=== PATIENT | female | born 1945 | race Caucasian/White ===

== ENCOUNTER 2018-01-19 15:44 | Observation (INO) ==
[2018-01-19] MEDS ORDERED: Bisacodyl 10 MG Supp RECTAL PRN (18:51)
[2018-01-19] MEDS ORDERED: Acetaminophen 325 MG Tablet PO PRN (18:51)
[2018-01-19] MEDS ORDERED: Sod Chloride 0.9% Inj 1,000 ML IV.CONT SCH (19:00)
--- NOTE | 2018-01-19 22:27 | P.HPIM ---
History of Present Illness Service: [facility] Primary Care Physician: UNKNOWN Chief Complaint: Abdominal pain, diarrhea, nausea, and vomiting History of Present Illness: Ms. Lynn is a 72-year-old female with a history of cervical cancer treated with radioactive cervical implants, hypertension, anxiety, depression, and fibromyalgia who presented to the emergency room in [place] on 01/19/2018 complaining of abdominal pain with nausea, vomiting and diarrhea for about 3 days duration. She had an abdomen/pelvis CT with IV contrast performed that showed abnormal dilation of the proximal duodenum before the duodenum crosses between SMA and aorta with concern for SMA syndrome. There was also a possible large duodenal diverticulum versus twist and proximal duodenum and a nonspecific fluid-filled structure deep in the pelvis on the right side measuring 3.8 x 5.2 cm which could possibly be a dilated bowel loop. The patient was transferred to [facility] for further evaluation. The patient is seen in her hospital room on 5 N. She reports having nausea for 3-5 days accompanied with one episode of vomiting per day and multiple episodes of diarrhea of the consistency of soft serve ice cream. She also reports severe right-sided back pain along with diffuse mid-abdominal pain. She reports having episodes of severe abdominal pain and nausea and vomiting over the past 30+ years since receiving radiation implants for treatment of cervical cancer. She states that the symptoms last for a few days and then resolved but are severe. She denies any recent fever, chills, chest pain, or shortness of breath. Sharp abdominal pain was relieved by [place] given at [place] ED. . Inpatient Certification: I certify that the inpatient services were ordered in accordance with Medicare regulations governing the order. This includes certification that hospital inpatient services are reasonable and necessary and in the case of services not specified as inpatient-only under 42 CFR 419.22(n), that they are appropriately provided as inpatient services in accordance to with the 2-midnight benchmark under 43 CFR 412.3(e) Review of Systems All other systems reviewed negative except as stated in HPI PMFSH - History History Provided By: Patient - Medical History Medical History: Medical History (Last Updated 01/19/18 @ 22:26 by BRIEN Rajan) Anxiety Depression Fibromyalgia Herniated disc, cervical Hx of cervical cancer Onset Date: ~1984 Hypertension - Surgical History Surgical History: Surgical History (Last Updated 01/19/18 @ 19:29 by BRIEN Rajan) History of back surgery History of tonsillectomy and adenoidectomy Hx of hysterectomy Hx of knee surgery - Family History Family History: Family History (Last Updated 01/19/18 @ 22:27 by BRIEN Rajan) Mother Family history of [place] (myocardial infarction) Father Cirrhosis of liver not due to alcohol - Social History I have reviewed the patient's Social History: Yes - Tobacco History Second Hand Smoke Exposure: Yes Smoking Status: Current every day smoker Tobacco Type: Cigarettes - Alcohol History How Often Do You Have a Drink Containing Alcohol: Monthly or less - Substance Use History Substance History: Active Abuse - Substance Use Type Marijuana Status: Active Route Used: Inhalation Frequency: Every other day Reason for Use: Calm Down, Sleep Comment: Get rid of stress Medications and Allergies Active Medications: Active Medications Acetaminophen (Tylenol) 650 mg PO Q4H PRN PRN Reason: Temp > 100.4 Al Hydroxide/Mg Hydroxide (Milk Of Magnesia Liq) 30 ml PO Q12H PRN PRN Reason: Mild Constipation Bisacodyl (Dulcolax Supp) 10 mg RECTAL DAILY PRN PRN Reason: SEVERE CONSITIPATION Enalaprilat (Vasotec Inj) 2.5 mg IV.PUSH Q6H PRN PRN Reason: sbp> 160 or dbp > 100 Dextrose/Sodium Chloride (D5w/1/2 Ns Inj) 1,000 mls @ 100 mls/hr IV.CONT .Q10H [facility]ECTOR Lactulose (Lactulose Liq) 30 ml PO DAILY PRN PRN Reason: SEVERE CONSITIPATION Morphine Sulfate (Morphine Inj) 2 mg IV.PUSH Q3H PRN PRN Reason: pain > 3 Ondansetron HCl (Zofran Inj) 4 mg IV.PUSH Q6H PRN PRN Reason: NAUSEA OR VOMITING Sennosides (Senokot) 17.2 mg PO Q12H PRN PRN Reason: Moderate Constipation Sodium Chloride (Ns Flush) 2 ml IV.FLUSH BID HECTOR Sodium Chloride (Ns Flush) 2 ml IV.FLUSH PRN PRN PRN Reason: FLUSH AFTER USING IV ACCESS Allergies Allergy/AdvReac Type Severity Reaction Status Date / Time metoclopramide Allergy Severe can't Verified 01/19/18 16:28 breathe Home Medications Medication Instructions Recorded Confirmed Type duloxetine [Cymbalta] 60 mg PO DAILY 01/19/18 01/19/18 History gabapentin 300 mg PO DAILY 01/19/18 01/19/18 History olmesartan [Benicar] 20 mg PO DAILY 01/19/18 01/19/18 History Exam Vital signs: Vital Signs 01/19/18 20:00 Temperature 97.6 F Pulse Rate 74 Respiratory Rate 18 Blood Pressure 157/74 H Pulse Oximetry 96 Narrative: GENERAL: This is a well-nourished, well-developed patient, in no apparent distress. SKIN: No rashes, ecchymoses or lesions. Cool and dry. HEAD: Atraumatic. Normocephalic. EYES: No scleral icterus. No injection or drainage. ENT: Nose without bleeding, purulent drainage. NECK: Trachea midline. No JVD or lymphadenopathy. CARDIOVASCULAR: Regular rate and rhythm without murmurs, gallops, or rubs. RESPIRATORY: Clear to auscultation. Breath sounds equal bilaterally. No wheezes , rales, or rhonchi. GASTROINTESTINAL: Bowel sounds soft and hypoactive but present. Abdomen soft, nondistended. No guarding. Upper abdominal pain with palpation. No rebound. MUSCULOSKELETAL: Extremities without clubbing, cyanosis, or edema. No calf tenderness. NEUROLOGICAL: Awake and alert. Motor and sensory grossly within normal limits. Normal speech. . Caprini VTE Risk Assessment Caprini VTE Risk Assessment: Moderate/High Risk (score >= 2) Caprini Risk Assessment Model: Point Value = 1 Point Value = 2 Point Value = 3 Point Value = 5 Age 41-60 Minor surgery BMI > 25 kg/m2 Swollen legs Varicose veins or History of unexplained or recurrent spontaneous Oral contraceptives or hormone replacement Sepsis (< 1 month) Serious lung disease, including pneumonia (< 1 month) Abnormal pulmonary function Acute myocardial infarction Congestive heart failure (< 1 month) History of inflammatory bowel disease Medical patient at bed rest Age 61-74 Arthroscopic surgery Major open surgery (> 45 min) Laparoscopic surgery (> 45 min) Malignancy Confined to bed (> 72 hours) Immobilizing plaster cast Central venous access Age >= 75 History of VTE Family history of VTE Factor V Leiden Prothrombin [id number] Lupus anticoagulant Anticardiolipin antibodies Elevated serum homocysteine Heparin-induced thrombocytopenia Other congenital or acquired thrombophilia Stroke (< 1 month) Elective arthroplasty Hip, pelvis, or leg fracture Acute spinal cord injury (< 1 month) Prophylaxis Regimen: Total Risk Factor Score Risk Level Prophylaxis Regimen 0-1 Low Early ambulation 2 Moderate Order ONE of the following: *Sequential Compression Device (SCD) *Heparin 5000 units SQ BID 3-4 Higher Order ONE of the following medications: *Heparin 5000 units SQ TID *Enoxaparin/Lovenox 40 mg SQ daily (WT < 150 kg, CrCl > 30 mL/min) *Enoxaparin/Lovenox 30 mg SQ daily (WT < 150 kg, CrCl > 10-29 mL/min) *Enoxaparin/Lovenox 30 mg SQ BID (WT < 150 kg, CrCl > 30 mL/min) AND/OR *Sequential Compression Device (SCD) 5 or more Highest Order ONE of the following medications: *Heparin 5000 units SQ TID (Preferred with Epidurals) *Enoxaparin/Lovenox 40 mg SQ daily (WT < 150 kg, CrCl > 30 mL/min) *Enoxaparin/Lovenox 30 mg SQ daily (WT < 150 kg, CrCl > 10-29 mL/min) *Enoxaparin/Lovenox 30 mg SQ BID (WT < 150 kg, CrCl > 30 mL/min) AND *Sequential Compression Device (SCD) Assessment and Plan - Plan Ms. Lynn is a 72-year-old female with a history of cervical cancer treated with radioactive cervical implants, hypertension, anxiety, depression, and fibromyalgia who presented to the emergency room in [place] on 01/19/2018 complaining of abdominal pain with nausea, vomiting and diarrhea for about 3 days duration. She had an abdomen/pelvis CT with IV contrast performed that showed abnormal dilation of the proximal duodenum before the duodenum crosses between SMA and aorta with concern for SMA syndrome. There was also a possible large duodenal diverticulum versus twist and proximal duodenum and a nonspecific fluid-filled structure deep in the pelvis on the right side measuring 3.8 x 5.2 cm which could possibly be a dilated bowel loop. The patient was transferred to [facility] for further evaluation. Abdominal pain with nausea, vomiting, and diarrhea; concern for SMA syndrome and pelvic mass due to imaging -Abdomen/pelvis CT with IV contrast performed that showed abnormal dilation of the proximal duodenum before the duodenum crosses between SMA and aorta with concern for SMA syndrome. There was also a possible large duodenal diverticulum versus twist and proximal duodenum and a nonspecific fluid-filled structure deep in the pelvis on the right side measuring 3.8 x 5.2 cm which could possibly be a dilated bowel loop. -Obtain upper GI with small bowel series to further evaluate for obstruction -Obtain abdomen/pelvis CT with oral contrast to further evaluate mass and pelvic and pelvis -N.p.o. -D5 half-normal saline at 100 cc/h -Morphine 2 mg IV push every 3 hours as needed for pain -Consult to gastroenterology -initiate assistance -Check for C. difficile, stool for electrolytes and osmolality, eosinophils, WBC smear -Monitor vital signs and white blood count -Chest x-ray personally reviewed and is negative for acute cardiopulmonary process -UA is within normal parameters Hypertension -As needed Vasotec per parameters -Holding p.o. meds for now -will resume Benicar when tolerating p.o. -monitor bp trends and adjust treatment as needed Depression/anxiety -Cymbalta will be resumed when tolerating p.o. -Consult special services supervisor services per patient request Peripheral neuropathy -Gabapentin will be resumed when tolerating p.o. Tobacco abuse -Advised cessation DVT prophylaxis -SCDs -holding chemoprophylaxis pending GI evaluation Discussed Condition With: Patient, Dr. George, and RN
[2018-01-19] MEDS: Morphine Sulfate Inj 2 MG/ML Vial IV.PUSH PRN (23:20)
[2018-01-19] MEDS: Dextrose 5%/NaCl 0.45% Inj 1,000 ML IV.CONT SCH (23:21)
[2018-01-20] MEDS: Dextrose 5%/NaCl 0.45% Inj 1,000 ML IV.CONT SCH ×2 (09:46→22:23)
[2018-01-20] MEDS: Morphine Sulfate Inj 2 MG/ML Vial IV.PUSH PRN (10:34)
[2018-01-20 10:45] LABS: Baso % (Auto) 0.5 % (0.0-2.0); Eos # (Auto) 0.1 th/mm3 (0.0-0.4); Eos % (Auto) 2.5 % (0.0-4.0); Hematocrit 35.9 % (35.0-46.0); Hemoglobin 12.2 gm/dL (11.6-15.3); Lymph # (Auto) 1.8 th/mm3 (1.0-4.8); Mean Corpuscular HGB Conc 33.9 % (32.0-36.0); Mean Corpuscular Volume 94.4 fL (80.0-100.0); Mean Platelet Volume 7.1 fL (7.0-11.0); Mono # (Auto) 0.4 th/mm3 (0.0-0.9); Mono % (Auto) 9.4 % (0.0-8.0); Neut # (Auto) 2.3 th/mm3 (1.8-7.7); Neut % (Auto) 49.6 % (16.0-70.0); Platelet Count 269 th/mm3 (150-450); Red Blood Count 3.81 mil/mm3 (4.00-5.30); Red Cell Distribution Width 13.8 % (11.6-17.2); White Blood Count 4.7 th/mm3 (4.0-11.0)
[2018-01-20 11:08] LABS: Anion Gap 2 meq/L (5-15); Blood Urea Nitrogen 8 mg/dL (7-18); Calcium 7.7 mg/dL (8.5-10.1); Carbon Dioxide 30.3 meq/L (21.0-32.0); Chloride 110 meq/L (98-107); Glomerular Filtration Rate Greater Than 89 mL/min (>89); Glucose,Random 99 mg/dL (74-106); Sodium 142 meq/L (136-145)
[2018-01-20] MEDS ORDERED: Diatrizoate Meglum/Diatrizoate Sod Liq 9 ML UDC PO ONE (12:45)
--- NOTE | 2018-01-20 12:51 | P.PNIM ---
Subjective Interval history: Follow-up for abdominal pain with nausea vomiting and diarrhea. Patient is currently doing well. With pain medications, her abdominal pain is better controlled. No fever or chills. Physical Exam Vital signs: Last Vital Signs Temp 97.4 F L 01/20/18 11:50 Pulse 75 01/20/18 11:50 Resp 18 01/20/18 11:50 BP 131/68 01/20/18 11:50 Pulse Ox 96 01/20/18 11:50 Intake & Output 01/18/18 01/19/18 01/20/18 01/21/18 06:59 06:59 06:59 06:59 Intake Total 1000 / 1000 Balance 1000 / 1000 Weight 69.9 kg Narrative: GENERAL: Alert, NAD. SKIN: Warm and dry. HEAD: Normocephalic. EYES: No scleral icterus. No injection or drainage. NECK: Supple, trachea midline. No JVD or lymphadenopathy. CARDIOVASCULAR: Regular rate and rhythm without murmurs, gallops, or rubs. RESPIRATORY: Breath sounds equal bilaterally. No accessory muscle use. GASTROINTESTINAL: Abdomen soft, non-tender except some tenderness in the LLQ, nondistended. MUSCULOSKELETAL: No cyanosis, or edema. BACK: Nontender without obvious deformity. No CVA tenderness. Results Labs CBC & Chem 7: 01/20/18 10:00 01/20/18 10:00 Assessment and Plan Plan Ms. Lynn is a 72-year-old female with a history of cervical cancer treated with radioactive cervical implants, hypertension, anxiety, depression, and fibromyalgia who presented to the emergency room in [place] on 01/19/2018 complaining of abdominal pain with nausea, vomiting and diarrhea for about 3 days duration. She had an abdomen/pelvis CT with IV contrast performed that showed abnormal dilation of the proximal duodenum before the duodenum crosses between SMA and aorta with concern for SMA syndrome. There was also a possible large duodenal diverticulum versus twist and proximal duodenum and a nonspecific fluid-filled structure deep in the pelvis on the right side measuring 3.8 x 5.2 cm which could possibly be a dilated bowel loop. The patient was transferred to [facility] for further evaluation. Abdominal pain with nausea, vomiting, and diarrhea -concern for SMA syndrome -Abdomen/pelvis CT with IV contrast performed that showed abnormal dilation of the proximal duodenum - -Obtain upper GI with small bowel series to further evaluate for obstruction -Obtain abdomen/pelvis CT with oral contrast to further evaluate mass and pelvic and pelvis -D5 half-normal saline at 100 cc/h -Morphine 2 mg IV push every 3 hours as needed for pain -Gastroenterology consult pending. Hypertension -As needed Vasotec per parameters -Currently normotensive. Depression/anxiety -Cymbalta will be resumed when tolerating p.o. -Consult police inspector services per patient request Peripheral neuropathy -Gabapentin will be resumed when tolerating p.o. Tobacco abuse -Advised cessation Full code. SCDs. Progress Note: Quality VTE Deep Vein Thrombosis/Pulmonary Embolism Present on Admission: No
--- NOTE | 2018-01-20 15:41 | CT ---
EXAM DATE: 01/20/2018 3:15 PM EST AGE/SEX: 72 years / Female INDICATIONS: Evaluation for SMA syndrome. Abdominal pain. CLINICAL DATA: This is the patient's initial encounter. Patient reports that signs and symptoms have been present for 2 days and indicates a pain score of 8/10. MEDICAL/SURGICAL HISTORY: Carcinoma, cervical. Hysterectomy. Tonsillectomy. RADIATION DOSE: 6.88 CTDI (mGy) COMPARISON: [facility], CT ABDOMEN & PELVIS W CONTRAST, 01/19/2018. . TECHNIQUE: Multiple contiguous axial images were obtained through the abdomen. Images were obtained using multiple row detector helical technique. Using automated exposure control and adjustment of the mA and/or kV according to patient size, radiation dose was kept as low as reasonably achievable to o btain optimal diagnostic quality images. DICOM format image data is available electronically for rev iew and comparison. FINDINGS: Today's study shows no evidence for significant SMA occlusion of the duodenum. Extensive assess chron ic vascular disease is present in the aorta. I can't discretely contrast is present in the gallbladde r. Liver, spleen, pancreas, adrenals and kidneys are unremarkable In the pelvis appears described fluid-filled structure in the cul-de-sac is only a cecum, now well fi lled with oral contrast. There is no free air. There are no inflammatory changes. CONCLUSION: 1. No evidence for SMA syndrome 2. No pelvic mass. Electronically signed by: Nathaniel Skinner MD Board Certified Radiologist 01/20/2018 3:40 PM EST
--- NOTE | 2018-01-20 15:50 | FL ---
EXAM DATE: 01/20/2018 3:46 PM EST AGE/SEX: 72 years / Female INDICATIONS: Obstruction. Evaluate for SMA syndrome. CLINICAL DATA: This is the patient's initial encounter. Patient reports that signs and symptoms have been present for 2 days and indicates a pain score of 8/10. MEDICAL/SURGICAL HISTORY: . Carcinoma, cervical. Hysterectomy. Tonsillectomy. COMPARISON: No prior exams available for comparison. FLUORO TIME: 1.6 minutes. 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 Ther e are several loops of nondilated air-containing small bowel with multiple small air-fluid levels. The upper GI series demonstrates the deglutition is grossly normal resulting in an unobstructed passa ge of barium into the proximal esophagus. There is normal esophageal mucosa and motility. There is a small reducible hiatal hernia with small amount of spontaneous gastroesophageal reflux. The gastric m ucosa and motility are within normal limits. Duodenal bulb and C-sweep are unremarkable in appearance . There is prompt passage of contrast through the duodenum and into the jejunum with no evidence of o bstruction. CONCLUSION; 1. Prompt passage of barium through the duodenum into the jejunum with no evidence of obstruction. T here is no evidence to suggest SMA syndrome. 2. Small reducible hiatal hernia with small amount of spontaneous gastroesophageal reflux. Electronically signed by: Don Spencer MD Board Certified Radiologist 01/20/2018 3:49 PM EST
[2018-01-20] MEDS ORDERED: Gadobutrol PF 7.5 MMOL/7.5 ML Vial (for RAD) IV.SIG ONE (18:12)
--- NOTE | 2018-01-20 19:13 | P.CONGI ---
History of Present Illness Consult date: 01/20/18 Consult reason: Possible superior mesenteric artery syndrome Chief complaint: Dehydration, Diarrhea History of Present Illness: This patient is a 72-year-old female with past medical history significant for anxiety, depression, fibromyalgia, herniated disc, cervical cancer and hypertension. Patient surgical history is coming significant for back surgery, tonsillectomy, hysterectomy and knee surgery. Patient presented to [facility] complaining of abdominal pain with nausea vomiting and diarrhea for 3-5 days. Patient reports lower abdominal pain and cramping that she states is intermittent. Patient reports accompanied loose stools with no noted bleeding. Patient states abdominal pain radiates across her mid abdomen. Patient denies any fever or chills, chest pain or shortness of breath. Patient denies ever having had a EGD or colonoscopy in the past. Our service has been consulted to evaluate patient for possible superior mesenteric artery syndrome. Review of Systems All other systems reviewed negative except as stated in HPI PMFSH - History History Provided By: Patient - Medical History Medical History: Medical History (Last Updated 01/19/18 @ 22:26 by BRIEN Rajan) Anxiety Depression Fibromyalgia Herniated disc, cervical Hx of cervical cancer Onset Date: ~1984 Hypertension - Surgical History Surgical History: Surgical History (Last Updated 01/19/18 @ 19:29 by BRIEN Rajan) History of back surgery History of tonsillectomy and adenoidectomy Hx of hysterectomy Hx of knee surgery - Family History Family History: Family History (Last Updated 01/19/18 @ 22:27 by BRIEN Rajan) Mother Family history of [place] (myocardial infarction) Father Cirrhosis of liver not due to alcohol - Tobacco History Second Hand Smoke Exposure: Yes Tobacco Use In Past 30 Days: Yes Smoking Status: Current every day smoker Tobacco Type: Cigarettes - Alcohol History How Often Do You Have a Drink Containing Alcohol: Monthly or less - Substance Use History Substance History: Active Abuse - Substance Use Type Marijuana Status: Active Route Used: Inhalation Frequency: Every other day Reason for Use: Calm Down, Sleep Comment: Get rid of stress - Immunization History Tetanus Immunization: >5 Years Hx Influenza Vaccine This Season: Yes Medications and Allergies Active Medications: Active Medications Acetaminophen (Tylenol) 650 mg PO Q4H PRN PRN Reason: Temp > 100.4 Al Hydroxide/Mg Hydroxide (Milk Of Magnesia Liq) 30 ml PO Q12H PRN PRN Reason: Mild Constipation Bisacodyl (Dulcolax Supp) 10 mg RECTAL DAILY PRN PRN Reason: SEVERE CONSITIPATION Enalaprilat (Vasotec Inj) 2.5 mg IV.PUSH Q6H PRN PRN Reason: sbp> 160 or dbp > 100 Dextrose/Sodium Chloride (D5w/1/2 Ns Inj) 1,000 mls @ 100 mls/hr IV.CONT .Q10H [facility] Last Admin: 01/20/18 09:46 Dose: 100 mls/hr Lactulose (Lactulose Liq) 30 ml PO DAILY PRN PRN Reason: SEVERE CONSITIPATION Morphine Sulfate (Morphine Inj) 2 mg IV.PUSH Q3H PRN PRN Reason: pain > 3 Last Admin: 01/20/18 10:34 Dose: 2 mg Ondansetron HCl (Zofran Inj) 4 mg IV.PUSH Q6H PRN PRN Reason: NAUSEA OR VOMITING Sennosides (Senokot) 17.2 mg PO Q12H PRN PRN Reason: Moderate Constipation Sodium Chloride (Ns Flush) 2 ml IV.FLUSH BID [facility] Last Admin: 01/20/18 09:47 Dose: Not Given Sodium Chloride (Ns Flush) 2 ml IV.FLUSH PRN PRN PRN Reason: FLUSH AFTER USING IV ACCESS Allergies Allergy/AdvReac Type Severity Reaction Status Date / Time metoclopramide Allergy Severe can't Verified 01/19/18 16:28 breathe Home Medications Medication Instructions Recorded Confirmed Type duloxetine [Cymbalta] 60 mg PO DAILY 01/19/18 01/19/18 History gabapentin 300 mg PO DAILY 01/19/18 01/19/18 History olmesartan [Benicar] 20 mg PO DAILY 01/19/18 01/19/18 History Exam Vital signs: Vital Signs 01/19/18 20:00 01/20/18 00:00 01/20/18 04:00 Temperature 97.6 F 97.6 F 97.7 F Pulse Rate 74 71 69 Respiratory Rate 18 18 18 Blood Pressure 157/74 H 133/63 135/64 Pulse Oximetry 96 96 95 01/20/18 05:02 01/20/18 07:54 01/20/18 11:50 Temperature 97.9 F 97.4 F L Pulse Rate 87 75 Respiratory Rate 18 20 18 Blood Pressure 135/72 131/68 Pulse Oximetry 98 96 01/20/18 16:00 Temperature 97.5 F L Pulse Rate 69 Respiratory Rate 18 Blood Pressure 178/83 H Pulse Oximetry 97 Intake & Output 01/20/18 01/20/18 01/21/18 06:59 18:59 06:59 Intake Total 1240 / 1240 Output Total 500 / 500 Balance 740 / 740 Weight 69.9 kg Intake: IV 1000 / 1000 D5W/1/2 NS Inj 1,000 ML @ 100 1000 / 1000 mls/hr IV.CONT .Q10H [facility] Rx#: [id number] Oral 240 / 240 Output: Urine 500 / 500 Other: # Voids 3 2 Date of Last Bowel Movement 01/19/18 01/19/18 Weight On Admission 69.853 kg - Constitutional no acute distress - Routine HEENT Exam Head: Present: normocephalic - Routine Respiratory Exam Present: CTA bilaterally - Routine Cardiovascular Exam Present: RRR - Routine Abdominal Exam Present: soft, normoactive bowel sounds, tenderness. Absent: distended, guarding, firm - Routine Extremities Exam Absent: edema - Routine Skin Exam Present: dry, warm - Routine Neurological Exam Present: alert Results - Labs CBC & Chem 7: 01/20/18 10:00 01/20/18 10:00 Labs: Laboratory Results - last 24 hr 01/20/18 01/20/18 10:00 10:00 WBC 4.7 RBC 3.81 L Hgb 12.2 Hct 35.9 MCV 94.4 MCH 32.0 MCHC 33.9 RDW 13.8 Plt Count 269 MPV 7.1 Neut % (Auto) 49.6 Lymph % (Auto) 38.0 [place] % (Auto) 9.4 H Eos % (Auto) 2.5 Baso % (Auto) 0.5 Neut # (Auto) 2.3 Lymph # (Auto) 1.8 [place] # (Auto) 0.4 Eos # (Auto) 0.1 Baso # (Auto) 0.0 WBC Differential . Differential Comment Auto diff final Sodium 142 Potassium 4.0 Chloride 110 H Carbon Dioxide 30.3 Anion Gap 2 L BUN 8 Creatinine 0.57 Estimated GFR Greater than 89 Random Glucose 99 Calcium 7.7 L D - Imaging Impressions Abdomen/Pelvis CT 01/20/18 00:00 CONCLUSION: 1. No evidence for SMA syndrome 2. No pelvic mass. 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 Patient surgical history is coming significant for back surgery, tonsillectomy, hysterectomy and knee surgery. Patient presented to [facility] complaining of abdominal pain with nausea vomiting and diarrhea for 3-5 days. Patient reports lower abdominal pain and cramping that she states is intermittent. Patient reports accompanied loose stools with no noted bleeding. Patient states abdominal pain radiates across her mid abdomen. Patient denies any fever or chills, chest pain or shortness of breath. Patient denies ever having had a EGD or colonoscopy in the past. Our service has been consulted to evaluate patient for possible superior mesenteric artery syndrome. Possible SMA Patient endorses 3-5 days of nausea vomiting diarrhea. No noted bleeding. Patient states abdominal cramping radiates across mid abdomen. She reports several episodes of severe abdominal pain with nausea and vomiting over the last 30 years since receiving radiation implants for treatment of cervical cancer. 01/20/2018 CT abdomen and pelvis reveal the following--. No evidence for SMA syndrome No pelvic mass. WBC 4.7 hemoglobin 12.2 hematocrit 35.9 01/19/2018 total bilirubin 0.3 AST 12 ALT 21 alk phos 99 lipase 155 Plan -N.p.o. -MRA of abdomen with contrast -Rehydration -Antiemetics and analgesics as per attending -Supportive care -Further recommendations to follow This patient has been seen by myself and Dr. Avina and this note is written on his behalf - Attending Attestation Dr. Avina
--- NOTE | 2018-01-20 19:17 | MR ---
EXAM DATE: 01/20/2018 7:10 PM EST AGE/SEX: 72 years / Female INDICATIONS: Obstruction. CLINICAL DATA: This is the patient's initial encounter. Patient reports that signs and symptoms have been present for 1 day and indicates a pain score of 0/10. MEDICAL/SURGICAL HISTORY: Hypertension. Carcinoma, cervical. Fusion, cervical. Total knee rep lacement, left. Total knee replacement, right. COMPARISON: [facility], CT ABDOMEN & PELVIS W CONTRAST, 01/19/2018. . TECHNIQUE: 14 ml Gadavist (gadobutrol) contrast infused MR angiography (single exam dose) was perfo rmed with digital subtraction. The data was postprocessed with a variety of visualization algorithms including full-volume maximum-intensity projection, multiplanar sliding thin slab reformation, and c urved planar reformation. FINDINGS: Abdominal Aorta: Diffuse atherosclerotic calcifications of the infrarenal aorta with luminal irregul arities. Mild ectasia distally measuring 1.9 cm in comparison to 1.5 cm. The remainder of the aorta. Renal Arteries: There are solitary renal arteries bilaterally. No evidence of ostial or segmental s tenosis. Mesenteric arteries: Mild stenosis of the celiac origin secondary to calcified plaque. SMA is patent. OSWALDO is patent. Kidneys: There is symmetric renal size. There is homogeneous enhancement in the parenchyma. Small s ubcentimeter cyst in the left kidney. Bifurcation: Normal. Right Pelvis: The right common iliac, internal iliac, and external iliac vessels are patent without luminal irregularity. Left Pelvis: Mild long segment stenosis of the common iliac artery secondary to eccentric plaque. Retroperitoneum: The adrenal glands are unremarkable. No adenopathy seen. Post Contrast: No abnormal areas of enhancement seen. CONCLUSION: 1. Mild celiac stenosis. SMA and OSWALDO are patent. This is unlikely to result in significant mesenteri c ischemia. 2. Diffuse atherosclerotic aspirations of the abdominal aorta with mild focal ectasia of the distal infrarenal aorta measuring up to 1.9 cm. 3. Mild long segment stenosis of the left common iliac artery secondary to eccentric plaque. 4. Small subcentimeter left-sided renal cysts. Electronically signed by: Efren Jeff MD Board Certified Radiologist 01/20/2018 7:16 PM YARED Hillman
[2018-01-21] MEDS: Acetaminophen 325 MG Tablet PO PRN ×2 (00:34→11:26)
[2018-01-21] MEDS: Dextrose 5%/NaCl 0.45% Inj 1,000 ML IV.CONT SCH (06:43)
[2018-01-21 07:42] VITALS: TEMP 97.6
[2018-01-21 12:24] VITALS: BP 170/80; PULSE 66; RESP 18; O2SAT 94
--- NOTE | 2018-01-21 13:24 | P.PNIM ---
Subjective Interval history: Follow-up for abdominal pain with nausea vomiting and diarrhea. Patient is doing well. She reports significant improvement of her abdominal pain. MRI did not show any evidence of SMA syndrome. Physical Exam Vital signs: Last Vital Signs Temp 97.6 F 01/21/18 11:20 Pulse 66 01/21/18 11:20 Resp 18 01/21/18 11:20 BP 170/80 H 01/21/18 11:20 Pulse Ox 94 L 01/21/18 11:20 Intake & Output 01/19/18 01/20/18 01/21/18 01/22/18 06:59 06:59 06:59 06:59 Intake Total 1240 / 1240 Output Total 502 / 502 Balance 738 / 738 Weight 69.9 kg 0 g Narrative: GENERAL: Alert, NAD. SKIN: Warm and dry. HEAD: Normocephalic. EYES: No scleral icterus. No injection or drainage. NECK: Supple, trachea midline. No JVD or lymphadenopathy. CARDIOVASCULAR: Regular rate and rhythm without murmurs, gallops, or rubs. RESPIRATORY: Breath sounds equal bilaterally. No accessory muscle use. GASTROINTESTINAL: Abdomen soft, non-tender, nondistended. MUSCULOSKELETAL: No cyanosis, or edema. BACK: Nontender without obvious deformity. No CVA tenderness. Results Labs CBC & Chem 7: 01/20/18 10:00 01/20/18 10:00 Imaging Imaging: Impressions Abdomen/Pelvis CT 01/20/18 00:00 CONCLUSION: 1. No evidence for SMA syndrome 2. No pelvic mass. Abdomen MRA 01/20/18 15:07 CONCLUSION: 1. Mild celiac stenosis. SMA and OSWALDO are patent. This is unlikely to result in significant mesenteric ischemia. 2. Diffuse atherosclerotic aspirations of the abdominal aorta with mild focal ectasia of the distal infrarenal aorta measuring up to 1.9 cm. 3. Mild long segment stenosis of the left common iliac artery secondary to eccentric plaque. 4. Small subcentimeter left-sided renal cysts. Assessment and Plan (1) Nausea vomiting and diarrhea: Code(s): R11.2 - Nausea with vomiting, unspecified; R19.7 - Diarrhea, unspecified Status: Acute (2) Superior mesenteric artery syndrome: Code(s): K55.1 - Chronic vascular disorders of intestine Status: Acute Plan Ms. Lynn is a 72-year-old female with a history of cervical cancer treated with radioactive cervical implants, hypertension, anxiety, depression, and fibromyalgia who presented to the emergency room in [place] on 01/19/2018 complaining of abdominal pain with nausea, vomiting and diarrhea for about 3 days duration. She had an abdomen/pelvis CT with IV contrast performed that showed abnormal dilation of the proximal duodenum before the duodenum crosses between SMA and aorta with concern for SMA syndrome. There was also a possible large duodenal diverticulum versus twist and proximal duodenum and a nonspecific fluid-filled structure deep in the pelvis on the right side measuring 3.8 x 5.2 cm which could possibly be a dilated bowel loop. The patient was transferred to [facility] for further evaluation. Abdominal pain with nausea, vomiting, and diarrhea -concern for SMA syndrome -Abdomen/pelvis CT with IV contrast performed that showed abnormal dilation of the proximal duodenum -Upper GI series, Abdominal MRA largely unremarkable for any acute findings. No SMA syndrome. -D5 half-normal saline at 100 cc/h -Morphine 2 mg IV push every 3 hours as needed for pain -Gastroenterology is following. -Will advance diet. If she tolerates well, will discharge her home today. Hypertension -As needed Vasotec per parameters -Currently normotensive. Depression/anxiety -Cymbalta will be resumed when tolerating p.o. -Consult inpatient nursing aide services per patient request Peripheral neuropathy -Gabapentin will be resumed when tolerating p.o. Tobacco abuse -Advised cessation Full code. SCDs. Progress Note: Quality VTE Deep Vein Thrombosis/Pulmonary Embolism Present on Admission: No
--- NOTE | 2018-01-21 20:41 | P.PNGI ---
Subjective Interval history: Patient sitting up in bed Tolerated lunch meal without any nausea vomiting or abdominal discomfort <Maribeth Olivares - Last Filed: 01/21/18 20:36> Physical Exam Vital signs: Vital Signs 01/21/18 00:00 01/21/18 04:00 01/21/18 07:41 Temperature 98.3 F 97.8 F 97.6 F Pulse Rate 89 80 69 Respiratory Rate 20 20 17 Blood Pressure 138/58 L 171/89 H 140/88 Pulse Oximetry 93 L 97 97 01/21/18 11:20 Temperature 97.6 F Pulse Rate 66 Respiratory Rate 18 Blood Pressure 170/80 H Pulse Oximetry 94 L Intake & Output 01/21/18 01/21/18 01/22/18 06:59 18:59 06:59 Intake Total 240 / 240 Output Total 2 / 2 Balance -2 / -2 240 / 240 Weight 0 g Intake: Oral 240 / 240 Output: Urine 2 / 2 Other: Date of Last Bowel Movement 01/19/18 01/19/18 - Constitutional no acute distress - Routine Respiratory Exam Present: CTA bilaterally - Routine Cardiovascular Exam Present: RRR - Routine Abdominal Exam Present: soft, normoactive bowel sounds. Absent: tenderness, distended, guarding, firm - Routine Skin Exam Present: dry, warm - Routine Neurological Exam Present: alert <Maribeth Olivares - Last Filed: 01/21/18 20:36> Vital signs: Vital Signs 01/21/18 11:20 Temperature 97.6 F Pulse Rate 66 Respiratory Rate 18 Blood Pressure 170/80 H Pulse Oximetry 94 L Intake & Output 01/21/18 01/22/18 01/22/18 18:59 06:59 18:59 Intake Total 240 / 240 Balance 240 / 240 Intake: Oral 240 / 240 Other: Date of Last Bowel Movement 01/19/18 <Joel Bailey - Last Filed: 01/22/18 08:35> Results - Labs CBC & Chem 7: 01/20/18 10:00 01/20/18 10:00 <Maribeth Olivares - Last Filed: 01/21/18 20:36> - Labs CBC & Chem 7: 01/20/18 10:00 01/20/18 10:00 <Joel Bailey - Last Filed: 01/22/18 08:35> Assessment and Plan (1) Nausea vomiting and diarrhea Status: Acute Code(s): R11.2 - Nausea with vomiting, unspecified; R19.7 - Diarrhea, unspecified (2) Superior mesenteric artery syndrome Status: Acute Code(s): K55.1 - Chronic vascular disorders of intestine - Plan This patient is a 72-year-old female with past medical history significant for anxiety, depression, fibromyalgia, herniated disc, cervical cancer and hypertension. Patient surgical history is coming significant for back surgery, tonsillectomy, hysterectomy and knee surgery. Patient presented to [facility] complaining of abdominal pain with nausea vomiting and diarrhea for 3-5 days. Patient reports lower abdominal pain and cramping that she states is intermittent. Patient reports accompanied loose stools with no noted bleeding. Patient states abdominal pain radiates across her mid abdomen. Patient denies any fever or chills, chest pain or shortness of breath. Patient denies ever having had a EGD or colonoscopy in the past. Our service has been consulted to evaluate patient for possible superior mesenteric artery syndrome. Possible SMA Patient endorses 3-5 days of nausea vomiting diarrhea. No noted bleeding. Patient states abdominal cramping radiates across mid abdomen. She reports several episodes of severe abdominal pain with nausea and vomiting over the last 30 years since receiving radiation implants for treatment of cervical cancer. 01/20/2018 CT abdomen and pelvis reveal the following--. No evidence for SMA syndrome No pelvic mass. WBC 4.7 hemoglobin 12.2 hematocrit 35.9 01/19/2018 total bilirubin 0.3 AST 12 ALT 21 alk phos 99 lipase 155 01/21/2018 Patient denies nausea vomiting or diarrhea. Denies any noted bleeding, denies abdominal pain. States tolerated regular diet without difficulty or discomfort. 01/20/2018 abdominal MRA reveal the following-- 1. Mild celiac stenosis. SMA and OSWALDO are patent. This is unlikely to result in significant mesenteric ischemia. 2. Diffuse atherosclerotic aspirations of the abdominal aorta with mild focal ectasia of the distal infrarenal aorta measuring up to 1.9 cm. 3. Mild long segment stenosis of the left common iliac artery secondary to eccentric plaque. 4. Small subcentimeter left-sided renal cysts. No new labs today Patient stable for discharge from GI standpoint Plan Diet as tolerated Patient agrees to follow-up with advanced GI in 1 week post discharge This patient has been seen by myself and Dr. Bailey and this note is written on his behalf - Attending Attestation Dr. Bailey <Maribeth Olivares - Last Filed: 01/21/18 20:36> (1) Nausea vomiting and diarrhea Status: Acute Code(s): R11.2 - Nausea with vomiting, unspecified; R19.7 - Diarrhea, unspecified (2) Superior mesenteric artery syndrome Status: Acute Code(s): K55.1 - Chronic vascular disorders of intestine - Attending Attestation The patient was seen and examined. Agree with above note. <Joel Bailey - Last Filed: 01/22/18 08:35>
== END 2018-01-21 17:23 | disposition home or self-care (01) ==
LOC: PHEDDLT 20:50 → INTOOBSV 21:00 → N05 21:00
PROVIDERS: ADMIT Hospitalist; ATTEND Hospitalist